=== PATIENT | female | born 1960 | race Caucasian/White ===

== ENCOUNTER 2017-12-08 05:05 | Day surgery (SDC) | payer BC ==
[~2017-12-08] VITALS: Ht 165.1 cm; Wt 104.1 kg
[~2017-12-08 05:05] MED LIST: AMLO10; ASPI81CH; CALCAVITDA; GABA600; HYDCHL50; JARDIANCE10 MG; LISI5; METF500; METO25ER; TANZEUM50 MG/0.5
[2017-12-08] MEDS ORDERED: Tapazole10 MG PO (09:07)
[2017-12-08] MEDS ORDERED: FARXIGA10 MG PO (09:08)
[2017-12-08] MEDS ORDERED: GLIP5 PO (09:09)
[2017-12-08] MEDS ORDERED: NAPR500ERA PO (09:09)
[2017-12-08] MEDS ORDERED: PROBIOTIC1 EAC1 PO (09:10)
[2017-12-08] MEDS ORDERED: Biotin300 MCG (09:10)
[2017-12-08] MEDS ORDERED: Hair, Skin & N1 EACH PO (09:11)
[2017-12-08] MEDS ORDERED: POTASSIUM GLUC500 MG (09:11)
[2017-12-08] MEDS ORDERED: TRULICITY1.5 MG/0.5 INJ (09:12)
[2017-12-08] MEDS ORDERED: TRESIBA FL200 UNIT/1 INJ (09:12)
[2018-09-19] MEDS ORDERED: LOSARTAN POTAS100 MG PO (12:17)
[2018-09-19] MEDS ORDERED: Metformin HCl1000 MG PO (12:17)
[2018-09-19] MEDS ORDERED: Zestril40 MG PO (12:17)
[2018-09-19] MEDS ORDERED: XYZAL5 MG PO (12:18)
[2018-09-19] MEDS ORDERED: HYDCHL50 PO (12:18)
[2018-09-19] MEDS ORDERED: MELA3 PO (12:18)
[2018-09-19] MEDS ORDERED: VITAMIN D5000 UNIT PO (12:18)
[2018-09-19] MEDS ORDERED: Multivitamin1 EAC1 PO (12:19)
[2018-09-19] MEDS ORDERED: FOLI1 PO (12:19)
[2018-09-19] MEDS ORDERED: ZOLP10 PO (12:20)
[2018-09-19] MEDS ORDERED: Kaon-Cl40 MEQ/15 PO (12:20)
[2018-09-19] MEDS ORDERED: METHI10 PO (12:21)
[2018-09-19] MEDS ORDERED: GLIP5 PO (12:21)
[2018-09-19] MEDS ORDERED: Lopressor 50 mg50 MG PO (12:22)
[2018-09-19] MEDS ORDERED: DULO60 PO (12:22)
[2018-09-19] MEDS ORDERED: MONT10T PO (12:22)
[2018-09-19] MEDS ORDERED: TRULICITY0.75 MG/0. (12:23)
== END 2017-12-08 09:53 | disposition home or self-care (01) ==
LOC: ORSCSDS 05:05
PROVIDERS: Anesthesiology
PROC: 3E0R33Z Introduction of Anti-inflammatory into Spinal Canal, Percutaneous Approach (ICD-10-PCS; principal; 2017-12-08 09:30)
DX: M96.1 Postlaminectomy syndrome, not elsewhere classified (principal); M54.16 Radiculopathy, lumbar region; E11.9 Type 2 diabetes mellitus without complications; E05.90 Thyrotoxicosis, unspecified without thyrotoxic crisis or storm; K21.9 Gastro-esophageal reflux disease without esophagitis; E66.9 Obesity, unspecified; Z68.38 Body mass index [BMI] 38.0-38.9, adult; Z79.82 Long term (current) use of aspirin; Z79.84 Long term (current) use of oral hypoglycemic drugs; Z79.4 Long term (current) use of insulin; Z79.899 Other long term (current) drug therapy; I10 Essential (primary) hypertension
CPT/HCPCS: J1040

== ENCOUNTER 2018-09-24 11:09 | Day surgery (SDC) | payer BC ==
[~2018-09-24] VITALS: Ht 167.6 cm; Wt 99.5 kg
[~2018-09-24 11:09] MED LIST changes: +Biotin300 MCG; +DULO60 PO; +FARXIGA10 MG PO; +FOLI1 PO; +GLIP5 PO; +HYDCHL50 PO; +Hair, Skin & N1 EACH PO; +Kaon-Cl40 MEQ/15 PO; +LOSARTAN POTAS100 MG PO; +Lopressor 50 mg50 MG PO; +MELA3 PO; +METHI10 PO; +MONT10T PO; +Metformin HCl1000 MG PO; +Multivitamin1 EAC1 PO; +NAPR500ERA PO; +POTASSIUM GLUC500 MG; +PROBIOTIC1 EAC1 PO; +TRESIBA FL200 UNIT/1 INJ; +TRULICITY0.75 MG/0.; +TRULICITY1.5 MG/0.5 INJ; +Tapazole10 MG PO; +VITAMIN D5000 UNIT PO; +XYZAL5 MG PO; +ZOLP10 PO; +Zestril40 MG PO
== END 2018-09-24 12:33 | disposition home or self-care (01) ==
LOC: ORSCSDS 11:09
PROVIDERS: Internal Medicine Gastroenterology
PROC: 0DBP8ZX Excision of Rectum, Via Natural or Artificial Opening Endoscopic, Diagnostic (ICD-10-PCS; principal; 2018-09-24 12:15)
DX: Z12.11 Encounter for screening for malignant neoplasm of colon (principal); K62.1 Rectal polyp; K64.8 Other hemorrhoids; K57.30 Diverticulosis of large intestine without perforation or abscess without bleeding; E11.9 Type 2 diabetes mellitus without complications; I10 Essential (primary) hypertension; K21.9 Gastro-esophageal reflux disease without esophagitis; E05.90 Thyrotoxicosis, unspecified without thyrotoxic crisis or storm; J45.909 Unspecified asthma, uncomplicated; E66.9 Obesity, unspecified; Z68.36 Body mass index [BMI] 36.0-36.9, adult; Z79.82 Long term (current) use of aspirin; Z79.84 Long term (current) use of oral hypoglycemic drugs; Z79.899 Other long term (current) drug therapy
CPT/HCPCS: 82947; 88305; J7120

== ENCOUNTER 2019-09-16 06:03 | Day surgery (SDC) | payer BC ==
[~2019-09-16] VITALS: Ht 167.6 cm; Wt 101.7 kg
[~2019-09-16 06:03] MED LIST changes: +ASPI81CH PO; +Amlodipine Besy10 MG PO; +BIOTIN5000 MCG PO; +CALCIUM CIT 311 EACH PO; +GABA300 PO; +POTASSIUM GLUCO90 MG PO; +THERA-D2000 UNIT PO; +TRESIBA100 UNIT/1 ID; -VITAMIN D5000 UNIT PO
--- NOTE | 2019-09-16 06:57 | NUR ---
History, Chart, Medications and Allergies reviewed before start of procedure. Patient confirms NPO status and agrees with scheduled surgery. Lungs clear T/O to Auscultation. Pre-Op teaching done. Pt verbalizes understanding. Patient reports completing Chlorhexadine shower X5 prior to admission to hospital PLUS 5 DAYS OF MUPIROCIN IN BILATERAL NARES AT HOME. NO JEWELRY, CONTACTS, DENTURES PRESENT AT ADMIT. GLASSES WILL BE PLACED IN PACU.
--- NOTE | 2019-09-16 07:25 | NUR ---
PATIENT UP FOR UNMEASURED VOID. FIRE SAFETY INSPECTOR REPORT COMPLETED AT BEDSIDE.
--- NOTE | 2019-09-16 10:55 | NUR ---
PT ARRIVED BACK TO THE ROOM AT APPROXIMATELY 1050. PT ALERT AND ORIENTED UPON ARRIVAL. SHE DENIES PAIN. MOVES TOES WELL BUT HAS NO SENSATION TO BLE RT SPINAL ANESTHESIA. DENIES NAUSEA AND SHORNESS OF BREATH. WILL CONTINUE TO MONITOR.
--- NOTE | 2019-09-16 14:26 | NUR ---
DR. CARDOZO NOTIFIED THAT PT DEVELOPED A FEVER. TYLENOL GIVEN PER DR. CARDOZO. WILL CONTINUE TO MONITOR UNTIL PT LEAVES FOR SURGERY. WILL INCREASE VS MONITORING RELATED TO ELEVATED VEWS SCORE.
--- NOTE | 2019-09-16 18:54 | NUR ---
SHIFT SUMMARY PAIN HAS BEEN MANAGED WITH PO PAIN MEDICATION. PT WAS ABLE TO WORK WITH THERAPY AND IS A 1 ASSIST WITH GAIT BELT AND WALKER WHEN OOB. TOLERATING PO WELL. VSS. WILL MONITOR UNTIL REPORT TO ONCOMING RN.
[2019-09-17 04:01] LABS: BASOPHILS ABSOLUTE AUTO 0.03 K/mm3 (0.00-0.23); BASOPHILS PERCENT AUTO 0 % (0-2); EOSINOPHILS PERCENT AUTO 1 % (0-6); Hematocrit 39.6 % (33.0-51.0); Hemoglobin 12.5 g/dL (11.5-16.0); IMMATURE GRAN ABSOLUTE AUTO 0.05 K/mm3 (0.00-0.10); IMMATURE GRAN PERCENT AUTO 0 % (0-1); LYMPHOCYTES ABSOLUTE AUTO 2.32 K/mm3 (0.84-5.20); LYMPHOCYTES PERCENT AUTO 15 % (21-46); MONOCYTES PERCENT AUTO 5 % (4-13); Mean Corpuscular HGB 27.1 pg (26.0-34.0); Mean Corpuscular HGB Conc 31.6 g/dL (31.5-36.5); Mean Corpuscular Volume 86 fL (80-100); Mean Platelet Volume 9.5 fL (9.1-12.4); NEUTROPHILS ABSOLUTE AUTO 11.96 K/mm3 (1.96-9.15); NEUTROPHILS PERCENT AUTO 78 % (41-73); Platelet Count 336 K/mm3 (150-400); RDW Coefficient Variation 15.3 % (11.7-14.2); RDW Standard Deviation 47.8 fL (35.1-46.3); Red Blood Cell Count 4.62 M/mm3 (3.80-5.20); White Blood Cell Count 15.26 K/mm3 (4.00-11.30)
[2019-09-17 04:15] LABS: Anion Gap 6 mmol/L (6-16); Blood Urea Nitrogen 15 mg/dL (8-24); Bun/Creatinine Ratio 22.9 (12.0-20.0); CO2, Blood 30 mmol/L (21-32); Calcium, Blood 8.2 mg/dL (8.5-10.1); Chloride, Blood 103 mmol/L (98-108); Creatinine, Blood 0.66 mg/dL (0.40-1.00); Glomerular Filtration Rate >60 (60-); Glucose, Blood 168 mg/dL (70-99); Magnesium, Blood 1.8 mg/dL (1.6-2.4); Potassium, Blood 3.3 mmol/L (3.5-5.5); Sodium, Blood 139 mmol/L (136-145)
--- NOTE | 2019-09-17 07:23 | NUR ---
SUMMARY PT REPORTS PLEASED WITH PAIN CONTROL. CIRC INTACT TO EXT. VOIDING AND TOLERATING PO.
[2019-09-17] MEDS ORDERED: ACET500 PO (09:36)
[2019-09-17] MEDS ORDERED: OXYC5 PO (09:37)
--- NOTE | 2019-09-17 10:14 | NUR ---
09/17/19 1014 Aditi Amaya VERIFICATIONS: EDIT CHART.
[2019-09-17] MEDS ORDERED: ACET500 (11:34)
--- NOTE | 2019-09-17 13:22 | NUR ---
DISCHARGE PT PROVIDED WITH WRITTEN AND VERBAL DISCHARGE INSTRUCTIONS. SHE AND HER SPOUSE REPORTED UNDERSTANDING. SCRIPTS AND CLEAN DRESSINGS PROVIDED. PT DISCHARGED AT APPROXIMATELY 1316. ESCORTED OUT IN W/C
== END 2019-09-17 13:18 | disposition home or self-care (01) ==
LOC: ORSCMMR 06:03 → ORD 07:30 → SURS 10:38 → ORSCMMR 09-17 13:18
PROVIDERS: Orthopaedic Surgery
PROC: 0SRD0J9 Replacement of Left Knee Joint with Synthetic Substitute, Cemented, Open Approach (ICD-10-PCS; principal; 2019-09-16 07:30)
DX: M17.12 Unilateral primary osteoarthritis, left knee (principal); I10 Essential (primary) hypertension; I25.10 Atherosclerotic heart disease of native coronary artery without angina pectoris; E11.9 Type 2 diabetes mellitus without complications; E03.9 Hypothyroidism, unspecified; J45.909 Unspecified asthma, uncomplicated; Z79.899 Other long term (current) drug therapy
CPT/HCPCS: 36415; 73560-LT; 80048; 82947; 83735; 85025; 88300; 97110; 97116; 97161; 97530; C1713; C1776; J0171; J0690; J0735; J1100; J1170; J1815; J1885; J2250; J2405; J2704; J2795; J3010; J7120

== ENCOUNTER 2021-10-23 20:28 | Emergency (ER) | payer BC ==
[~2021-10-23] VITALS: Ht 165.1 cm; Wt 102.1 kg
[~2021-10-23 20:28] MED LIST changes: +ACET500; +ACET500 PO; +DIGESTIVE ADVA1 EAC3 PO; +EYE VITAMIN PO; +Methazolamide25 MG PO; +Micro-K8 MEQ PO; +OXYB5 PO; +OXYC5 PO; -TRESIBA100 UNIT/1 ID; +TRESIBA100 UNIT/2 SC; +TRULICITY1.5 MG/0.1 SC; +WOMENS VITAMIN PO
[2021-10-23] MEDS ORDERED: GABA600 PO (20:42)
[2021-10-23] MEDS ORDERED: GABAPENTIN600 MG PO (20:55)
== END 2021-10-23 20:51 | disposition home or self-care (01) ==
LOC: ER 20:28
DX: G62.89 Other specified polyneuropathies (principal); Z76.0 Encounter for issue of repeat prescription
CPT/HCPCS: 99281; A9270

== ENCOUNTER 2022-05-02 08:31 | Day surgery (SDC) | payer BC ==
[~2022-05-02] VITALS: Ht 165.1 cm; Wt 97.6 kg
[~2022-05-02 08:31] MED LIST changes: +GABA600 PO; +GABAPENTIN600 MG PO; +OCUVITE BLUE L1 EACH PO; +Sanctura20 MG PO
--- NOTE | 2022-05-02 09:07 | NUR ---
PT ADMITTED TO [facility]. AGREES WITH PLANNED SURGRY. LUNG SOUNDS CLEAR.
[2022-05-02] MEDS ORDERED: MONT10T PO (09:36)
[2022-05-02] MEDS ORDERED: TOUJEO MAX300 UNIT/2 SC (09:37)
--- NOTE | 2022-05-02 14:20 | NUR ---
PATIENT ARRIVED TO UNIT VIA BED. PRINEO DRESSING IN PLACE TO RIGHT KNEE WITH GIOVANNI WRAP & POLAR PACK IN PLACE, C/D/I. PATIENT DENIES PAIN AT THIS TIME, WIGGLES ALL TOES & HAS FULL SENSATION TO LOWER EXTREMITIES. LUNGS CLEAR, VSS ON 2L 02 NC, SATS >92%. ORIENTED TO ROOM AND CALL LIGHT.
[2022-05-02] MEDS ORDERED: METHIMAZOLE5 M1 PO (17:33)
[2022-05-02] MEDS ORDERED: POTA20LUD PO (17:35)
--- NOTE | 2022-05-02 18:23 | NUR ---
SHIFT SUMAMRY NO ACUTE CHANGES SINCE ARRIVAL TO UNIT. VSS ON RA, O2 WEANED OFF AND SATS MAINTAINING >92%. PATIENT AMBULATED TO BATHROOM WELL, 1 P ASSIST WITH FWW & GB. WORKED WITH PT THIS AFTERNOON. TOLERATING REGULAR DIET, DENIES N.V. VOIDING WELL. UP TO CHAIR FOR DINNER. CALL LIGHT IN REACH, WILL REPORT TO ONCOMING RN.
--- NOTE | 2022-05-02 20:42 | NUR ---
VERIFIED WITH PHARMACY AND PT ON GABAPENTIN DOSE.
--- NOTE | 2022-05-03 04:24 | NUR ---
SHIFT SUMMARY NO ACUTE CHANGES. PT SLEPT WELL T/O NIGHT. PRINEO DRESSING WITH SCANT RED DRAINAGE. REINFORCED WITH AQUACEL DRESSING AND POLAR PACK IN PLACE. 2 ROXICODONE FOR PAIN + SCHEDULED TYLENOL/TORADOL. GETS UP WELL WITH 1 SBA. PLAN FOR DISCHARGE HOME TODAY AFTER THERAPY. USES CALL LIGHT APPROPRIATELY.
[2022-05-03 05:14] LABS: BASOPHILS ABSOLUTE AUTO 0.02 K/mm3 (0.00-0.23); BASOPHILS PERCENT AUTO 0 % (0-2); EOSINOPHILS ABSOLUTE AUTO 0.02 K/mm3 (0.00-0.68); EOSINOPHILS PERCENT AUTO 0 % (0-6); Hematocrit 43.9 % (33.0-51.0); Hemoglobin 14.1 g/dL (11.5-16.0); IMMATURE GRAN ABSOLUTE AUTO 0.05 K/mm3 (0.00-0.10); IMMATURE GRAN PERCENT AUTO 0 % (0-1); LYMPHOCYTES ABSOLUTE AUTO 1.39 K/mm3 (0.84-5.20); LYMPHOCYTES PERCENT AUTO 11 % (21-46); MONOCYTES ABSOLUTE AUTO 0.43 K/mm3 (0.16-1.47); MONOCYTES PERCENT AUTO 3 % (4-13); Mean Corpuscular HGB 28.1 pg (26.0-34.0); Mean Corpuscular HGB Conc 32.1 g/dL (31.5-36.5); Mean Corpuscular Volume 88 fL (80-100); Mean Platelet Volume 9.9 fL (9.1-12.4); NEUTROPHILS ABSOLUTE AUTO 10.71 K/mm3 (1.96-9.15); NEUTROPHILS PERCENT AUTO 85 % (41-73); Platelet Count 377 K/mm3 (150-400); RDW Coefficient Variation 14.4 % (11.7-14.2); RDW Standard Deviation 45.9 fL (35.1-46.3); Red Blood Cell Count 5.01 M/mm3 (3.80-5.20); White Blood Cell Count 12.62 K/mm3 (4.00-11.30)
[2022-05-03 05:33] LABS: Bun/Creatinine Ratio 25.4 (12.0-20.0); Calcium, Blood 8.9 mg/dL (8.5-10.1); Creatinine, Blood 0.51 mg/dL (0.40-1.00); Magnesium, Blood 2.1 mg/dL (1.6-2.4); Potassium, Blood 3.4 mmol/L (3.5-5.5)
[2022-05-03] MEDS ORDERED: ACET500 PO (08:16)
[2022-05-03] MEDS ORDERED: OXYC5 PO (08:17)
--- NOTE | 2022-05-03 10:44 | NUR ---
PATIENT DECLINES TO TRY TO SIT UP AT EDGE OF BED OR CHAIR, STATES "IM NOT GETTING OUT OF BED, THEY SAID I CANT PUT WEIGHT ON IT". REASSURED PATIENT THAT SHE CAN USE HER NON-SURGICAL LEG (LEFT LEG) AND HER ARMS WITH A WALKER & WE WILL ASSIST HER. PATIENT STILL DECLINED TO TRY GETTING UP.
--- NOTE | 2022-05-03 10:51 | NUR ---
05/03/22 1051 Aditi Amaya VERIFICATIONS: EDIT CHART.
--- NOTE | 2022-05-03 11:17 | NUR ---
PT HAS CLEARED THERAPY. PAIN WELL CONTROLLED PER EMAR. AQUACEL IN PLACE, C/D/I. EATING, DRINKING, & VOIDING WELL. DRESSINGS, DISCHARGE INSTRUCTIONS & POLAR PACK SENT W/ PT. ESCORTED OUT VIA W/C.
== END 2022-05-03 11:07 | disposition home or self-care (01) ==
LOC: ORSCMMR 08:31 → ORD 10:30 → ORSCMMR 10:30 → SURS 14:29 → ORSCMMR 05-03 11:07
PROVIDERS: Orthopaedic Surgery
PROC: 8E0Y0CZ Robotic Assisted Procedure of Lower Extremity, Open Approach (ICD-10-PCS; principal; 2022-05-02 10:30)
PROC: 0SRC0JA Replacement of Right Knee Joint with Synthetic Substitute, Uncemented, Open Approach (ICD-10-PCS; principal; 2022-05-02 10:30)
DX: M17.11 Unilateral primary osteoarthritis, right knee (principal); Z96.652 Presence of left artificial knee joint; E11.9 Type 2 diabetes mellitus without complications; I10 Essential (primary) hypertension; E66.9 Obesity, unspecified; Z68.35 Body mass index [BMI] 35.0-35.9, adult; Z79.899 Other long term (current) drug therapy; Z79.82 Long term (current) use of aspirin; Z79.84 Long term (current) use of oral hypoglycemic drugs
CPT/HCPCS: 27447; S2900; 36415; 73560-RT; 80048; 82947; 83735; 85025; 97110; 97116; 97162; A9270; C1776; J0171; J0690; J0735; J1100; J1815; J1885; J2250; J2370; J2405; J2704; J2795; J3010; J7120

== ENCOUNTER → 2023-02-20 | Outpatient (CLI) | payer BC ==
[~2023-02-20] MED LIST changes: +METHIMAZOLE5 M1 PO; +POTA20LUD PO; +TOUJEO MAX300 UNIT/2 SC
[2023-02-22 14:11] LABS: HPV 16 Negative (Negative); HPV 18 Negative (Negative); HPV OTHER HR TYPES Negative (Negative)
== END | disposition home or self-care (01) ==
LOC: LAB 14:00 → LAB SHORT 14:00
PROVIDERS: Internal Medicine
DX: Z01.419 Encounter for gynecological examination (general) (routine) without abnormal findings (principal)
CPT/HCPCS: 87624; G0145

== ENCOUNTER → 2023-07-17 | Outpatient (CLI) | payer BC ==
[2023-07-17 13:02] LABS: Free Thyroxine 1.15 ng/dL (0.70-1.60); Thyroid Stimulating Hormone 2.26 uIU/mL (0.360-4.800)
== END | disposition home or self-care (01) ==
LOC: LAB 09:32 → LAB SHORT 09:32
PROVIDERS: Family Medicine
DX: Z11.59 Encounter for screening for other viral diseases (principal); E11.65 Type 2 diabetes mellitus with hyperglycemia; E05.00 Thyrotoxicosis with diffuse goiter without thyrotoxic crisis or storm
CPT/HCPCS: 36415; 83036; 84439; 84443; 86803

== ENCOUNTER 2023-11-02 08:25 | Day surgery (SDC) | payer BC ==
[~2023-11-02] VITALS: Ht 165.1 cm; Wt 98.9 kg
--- NOTE | 2023-11-02 09:10 | NUR ---
UPON REVIEWING MEDICATIONS, PT STATES SHE TOOK TRULICITY ON TUESDAY 10/30. DR GREEN AND DR DALEY NOTIFIED. PROCEDURE CANCELLED PER ANESTHESIA. PT INSTRUCTED TO CALL OFFICE TO RESCHEDULE. PT TOLERATED NEWS WELL. PT REPORTS THAT SHE WAS NOT INFORMED TO HOLD TRULICITY, BUT WILL FOLLOW UP WITH OFFICE.
[2023-11-14] MEDS ORDERED: ALBU2.5V5 INH (14:52)
[2023-11-14] MEDS ORDERED: FARXIGA10 MG PO (14:52)
[2023-11-14] MEDS ORDERED: HYDCHL50 PO (14:53)
[2023-11-14] MEDS ORDERED: GABA400 PO (14:53)
[2023-11-14] MEDS ORDERED: GLIP5 PO (14:53)
== END 2023-11-02 09:13 | disposition home or self-care (01) ==
LOC: ORSCMMR 08:25 → ORD 09:30 → ORSCMMR 09:30
DX: Z86.010 Personal history of colon polyps (principal); Z53.9 Procedure and treatment not carried out, unspecified reason
CPT/HCPCS: J7120

== ENCOUNTER 2023-11-15 10:12 | Day surgery (SDC) | payer BC ==
[~2023-11-15] VITALS: Ht 165.1 cm; Wt 97.7 kg
[~2023-11-15 10:12] MED LIST changes: +ALBU2.5V5 INH; +GABA400 PO
[2023-11-15 12:13] VITALS: BP 150/83
--- NOTE | 2023-11-15 12:39 | NUR ---
11/15/23 [address] RALPH, SEE ANESTHESIA RECORDS.
[2023-11-15 13:15] VITALS: BP 123/66
--- NOTE | 2023-11-15 13:45 | NUR ---
DISCHARGE INSTRUCTIONS PROVIDED. NO ACUTE DISTRESS. PT OUT OF DEPARTMENT VIA W/C. HOME WITH .
== END 2023-11-15 22:59 | disposition home or self-care (01) ==
LOC: ORSCMMR 10:12 → ORD 12:00 → ORSCMMR 12:00
PROVIDERS: Internal Medicine Gastroenterology
PROC: 0DBN8ZX Excision of Sigmoid Colon, Via Natural or Artificial Opening Endoscopic, Diagnostic (ICD-10-PCS; principal; 2023-11-15 12:00)
DX: Z12.11 Encounter for screening for malignant neoplasm of colon (principal); Z86.010 Personal history of colon polyps; D12.5 Benign neoplasm of sigmoid colon; I10 Essential (primary) hypertension; J45.909 Unspecified asthma, uncomplicated; E11.9 Type 2 diabetes mellitus without complications; E05.00 Thyrotoxicosis with diffuse goiter without thyrotoxic crisis or storm; G47.33 Obstructive sleep apnea (adult) (pediatric); Z98.84 Bariatric surgery status; Z68.35 Body mass index [BMI] 35.0-35.9, adult; Z79.85 Long-term (current) use of injectable non-insulin antidiabetic drugs; Z79.82 Long term (current) use of aspirin; Z79.84 Long term (current) use of oral hypoglycemic drugs; Z79.899 Other long term (current) drug therapy
CPT/HCPCS: 82947; 88305; J1100; J2704; J7120

== ENCOUNTER → 2024-02-28 | Outpatient (CLI) | payer BC | LOC: LAB 08:07 → LAB SHORT 08:07 | DX: D04.62 Carcinoma in situ of skin of left upper limb, including shoulder (principal) | CPT/HCPCS: 88305 ==

== ENCOUNTER → 2025-08-12 | Outpatient (CLI) | payer MEDICARE, BC ==
[2025-08-12 21:16] LABS: Bacterial Vaginosis PCR Negative (NEGATIVE); Candida Group, PCR NOT DETECTED (NOT DETECT)
[2025-08-12 21:58] LABS: Candida glabrata-krusei, PCR DETECTED (NOT DETECT)
== END ==
LOC: LAB SHORT 13:00 → LAB 13:00
PROVIDERS: Internal Medicine
DX: N89.8 Other specified noninflammatory disorders of vagina (principal)
CPT/HCPCS: 81515

== ENCOUNTER → 2025-09-26 | Outpatient (CLI) | payer MEDICARE, BC ==
[2025-09-26 18:35] LABS: Albumin, Blood 3.9 g/dL (3.4-5.0); Anion Gap 8 mmol/L (3-11); Blood Urea Nitrogen 11 mg/dL (8-24); CO2, Blood 32 mmol/L (21-32); Calcium, Blood 9.3 mg/dL (8.5-10.1); Chloride, Blood 102 mmol/L (98-108); Creatinine, Blood 0.60 mg/dL (0.40-1.00); Glucose, Blood 120 mg/dL (70-99); Magnesium, Blood 2.1 mg/dL (1.6-2.4); Phosphorus, Blood 3.9 mg/dL (2.5-4.9); Potassium, Blood 3.5 mmol/L (3.5-5.5); Sodium, Blood 138 mmol/L (136-145)
== END | disposition home or self-care (01) ==
LOC: LAB SHORT 15:35 → LAB 15:35
PROVIDERS: Internal Medicine
DX: E11.65 Type 2 diabetes mellitus with hyperglycemia (principal)
CPT/HCPCS: 80069; 83735